=== PATIENT | male | born 1990 | race Caucasian/White ===

== ENCOUNTER 2018-01-15 00:37 | Emergency (ER) | payer MEDICAID ==
[~2018-01-15] VITALS: Ht 182.9 cm; Wt 127.0 kg
[~2018-01-15 00:37] MED LIST: METH4TAB81 PO
[2018-01-15 00:47] VITALS: BP 153/99
[2018-01-15] MEDS ORDERED: HYDROcodone/acetaminophen 10/325mg tab PO ONE (01:15)
[2018-01-15] MEDS ORDERED: HYDR-565 PO (01:16)
== END 2018-01-15 01:43 | disposition home or self-care (01) ==
LOC: ER 00:37
DX: K08.89 Other specified disorders of teeth and supporting structures (principal); Z79.899 Other long term (current) drug therapy
CPT/HCPCS: 99283

== ENCOUNTER 2024-06-15 06:34 | Outpatient (CLI) | payer MEDICAID | END 2024-06-15 23:59 | disposition home or self-care (01) | LOC: MRI02 06:34 | PROVIDERS: ATTEND Pediatrics Sports Medicine | DX: S83.212A Bucket-handle tear of medial meniscus, current injury, left knee, initial encounter (principal); M71.22 Synovial cyst of popliteal space [Baker], left knee; M25.562 Pain in left knee; M25.462 Effusion, left knee; X58.XXXA Exposure to other specified factors, initial encounter; Y93.89 Activity, other specified; Y92.89 Other specified places as the place of occurrence of the external cause; Y99.8 Other external cause status | CPT/HCPCS: 73721 ==